=== PATIENT | female | born 1995 | race Two or more races ===

== ENCOUNTER 2017-12-30 11:51 | Emergency (ER) | payer OTHER ==
[~2017-12-30] VITALS: Ht 154.9 cm; Wt 57.6 kg
[2017-12-30 13:57] VITALS: BP 111/69
== END 2017-12-30 14:50 | disposition home or self-care (01) ==
LOC: ED 14:25
DX: S23.3XXA Sprain of ligaments of thoracic spine, initial encounter (principal); S16.1XXA Strain of muscle, fascia and tendon at neck level, initial encounter; V49.9XXA Car occupant (driver) (passenger) injured in unspecified traffic accident, initial encounter; Y93.I9 Activity, other involving external motion; Y92.488 Other paved roadways as the place of occurrence of the external cause; Y99.8 Other external cause status
CPT/HCPCS: 72050; 72072; 99284